=== PATIENT | male | born 2000 | race Caucasian/White ===

== ENCOUNTER → 2019-01-17 12:22 | Outpatient (CLI) | payer MEDICAID, SELFPAY ==
--- NOTE | 2019-01-17 12:26 | XR_ITS ---
PROCEDURE: XR HAND RT MIN 3V CLINICAL INDICATION: Post op Hand FX COMPARISON: XR HAND RT MIN 3V from 01/03/2019 XR HAND RT 2V from 01/07/2019 FINDINGS: The longitudinal orthopedic in the 5th metacarpal extending into the carpometacarpal junction. There is callus formation at the fracture site of 5th metacarpal the 2 horizontal position pins are seen crossing the bases of the 3rd 4th and 5th metacarpals. Alignment of the fractures at the base of the 4th and 5th metacarpals are stable and unchanged from the previous exam. IMPRESSION: Stable healing fracture post ORIF bases of the 4th and 5th metacarpals Dictated by: Dr. Bharat Antoine MD 01/17/2019 13:[address] Bharat Antoine MD in [place] 01/17/2019 13:58
== END ==
PROVIDERS: Visit Provider Orthopaedic Surgery
DX: S62.316A Displaced fracture of base of fifth metacarpal bone, right hand, initial encounter for closed fracture (principal)
CPT/HCPCS: 73130

== ENCOUNTER → 2019-01-30 15:35 | Outpatient (CLI) | payer MEDICAID, SELFPAY ==
--- NOTE | 2019-01-30 15:41 | XR_ITS ---
PROCEDURE: XR HAND RT MIN 3V CLINICAL INDICATION: Hand Fx Follow-up follow-up fracture COMPARISON: XR HAND RT MIN 3V from 01/03/2019 XR HAND RT 2V from 01/07/2019 XR HAND RT MIN 3V from 01/17/2019 XR HAND RT MIN 3V from 01/23/2019 FINDINGS: There is a splint in place. No change in the 2 transverse pans and the longitudinal hernández stabilizing the 5th metacarpal fracture which appears to be in good alignment. IMPRESSION: Healing 5th metacarpal fracture status post pin placement now with a splint present Dictated by: Wero King MD 01/30/2019 17:24 Electronically signed by Wero King MD in [place] 01/30/2019 17:24
== END ==
PROVIDERS: Visit Provider Orthopaedic Surgery
DX: S62.316A Displaced fracture of base of fifth metacarpal bone, right hand, initial encounter for closed fracture (principal)
CPT/HCPCS: 73130

== ENCOUNTER → 2019-02-21 13:04 | Outpatient (CLI) | payer MEDICAID, SELFPAY ==
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
== END ==
PROVIDERS: Visit Provider Orthopaedic Surgery
DX: S62.311A Displaced fracture of base of second metacarpal bone, left hand, initial encounter for closed fracture (principal)
CPT/HCPCS: 73130